=== PATIENT | male | born 1975 | race African-American/Black ===

== ENCOUNTER 2016-10-30 17:03 | Emergency (ER) | payer MEDICARE, MEDICAID ==
[~2016-10-30] VITALS: Ht 177.8 cm; Wt 60.0 kg
[~2016-10-30 17:03] MED LIST: ACET325 PO; BACI500T TOP; DOCU1CAP39 PO; MAGN30S PO; OXYC1SOL5 PO; PANT40P PO; POLY17S PO
[2016-10-30 17:06] VITALS: BP 96/53; PULSE 75; RESP 14; TEMP 98.3; O2SAT 97
--- NOTE | 2016-10-30 17:32 | PD ---
HPI Chief Complaint: OD/ Ingestion Time Seen by Provider: 17:10 Travel History International Travel<30 days: No Contact w/Intl Traveler<30days: No Traveled to known affect area: No History of Present Illness HPI The patient is a 41-year-old [place] male who presents emergency department via EMS after he was found lying on the road with altered mental status. According to EMS the patient was drinking alcohol earlier today and smoking K2. Upon arrival the patient was somewhat lethargic, was not answering questions appropriately, with subsequent brought to the emergency department for further evaluation. 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 The patient refuses to have any IV established and blood work performed. He is requesting something to drink. The patient denies any trauma to the head and denies any company chest pain, shortness breath, vomiting, or abdominal pain. He does complain of mild nausea, but refuses any antiemetics. PFSH Past Medical History Medical History: Denies Significant Hx Past Surgical History Surgical History: No Previous Surgery Other Surgery: Yes (RIGHT HAND SX) Social History Alcohol Use: Yes (patient admits to drinking alcohol earlier today) Tobacco Use: Yes (10 CIGARETTES ) Substance Use: Yes (HX FLAKKA, K2) Allergies-Medications (Allergen,Severity, Reaction): Coded Allergies: No Known Allergies (Unverified , 05/22/16) Reported Meds & Prescriptions Reported Meds & Active Scripts Active No Active Prescriptions or Reported Medications Review of Systems Except as stated in HPI: all other systems reviewed are Neg Gastrointestinal: Positive: Nausea Neurologic: Positive: Change in Mentation (according to EMS the patient was lethargic with an altered mental status) Psychiatric: Positive: Substance Abuse Physical Exam Narrative GENERAL: Awake, alert, pleasant 41-year-old male who appears his stated age and is in no acute respiratory distress. SKIN: Focused skin assessment warm/dry. HEAD: Atraumatic. Normocephalic. EYES: Pupils equal and round. Pupils are 4 mm bilateral and reactive. Mild injection. ENT: No nasal bleeding or discharge. Mucous membranes pink and moist. NECK: Trachea midline. No JVD. CARDIOVASCULAR: Regular rate and rhythm. No murmur appreciated. RESPIRATORY: No accessory muscle use. Clear to auscultation. Breath sounds equal bilaterally. GASTROINTESTINAL: Abdomen soft, non-tender, nondistended. No rebound tenderness. MUSCULOSKELETAL: No obvious deformities. No clubbing. No cyanosis. No edema. NEUROLOGICAL: Awake and alert. No obvious cranial nerve deficits. Motor grossly within normal limits. Normal speech. Nonfocal. Oriented 5. Follows commands without difficulty. PSYCHIATRIC: Appropriate mood and affect; insight and judgment normal. Data Data Last Documented VS Vital Signs Date Time Temp Pulse Resp B/P Pulse Ox O2 Delivery O2 Flow Rate FiO2 10/30/16 18:00 79 14 110/77 95 Room Air 10/30/16 17:06 98.3 [facility] Medical Decision Making Medical Screen Exam Complete: Yes Emergency Medical Condition: Yes Medical Record Reviewed: Yes Differential Diagnosis Differential diagnosis includes drug ingestion, alcohol intoxication, polysubstance abuse, mood disorder NOS. Narrative Course The patient is alert and oriented 5, nonfocal on exam, and refusing IV. Therefore, no IV or blood work was obtained. The patient was monitored in the emergency department for any change in mental status. The patient was given water to drink per his request. The patient was reevaluated at 6:40 PM, he still alert and oriented 5, is able follow commands without difficulty. The patient is stable for discharge. Diagnosis Primary Impression: Ingestion of substance Qualified Code: T65.91XA - Ingestion of substance, accidental or unintentional , initial encounter Patient Instructions: General Instructions Additional Instructions: Do not use drugs. Follow-up with your primary physician. Ride home. Return if symptoms worsen or progress. Med/Other Pt SpecificInfo: No Change to Meds Scripts No Active Prescriptions or Reported Meds Disposition: DISCHARGE HOME Condition: Stable Loyd Ulloa MD Oct 30, 2016 17:32
[2016-10-30 18:00] VITALS: BP 110/77; PULSE 79; RESP 14; O2SAT 95
== END 2016-10-30 19:06 | disposition home or self-care (01) ==
LOC: NEPE 17:03
DX: T65.91XA Toxic effect of unspecified substance, accidental (unintentional), initial encounter (principal)
CPT/HCPCS: 99284

== ENCOUNTER 2016-11-07 10:02 | Emergency (ER) | payer MEDICARE, MEDICAID ==
[~2016-11-07] VITALS: Ht 177.8 cm; Wt 59.0 kg
[2016-11-07 10:12] VITALS: BP 112/57; PULSE 89; RESP 18; TEMP 97.5; TEMP 98.1
--- NOTE | 2016-11-07 12:14 | PD ---
HPI Chief Complaint: Altered Mental Status Time Seen by Provider: 11:50 Travel History International Travel<30 days: No Contact w/Intl Traveler<30days: No Traveled to known affect area: No History of Present Illness HPI 41-year-old male was brought in by EMS after patient was found lying in the middle of the street. Patient ate that he was visiting his father nearby. Patient states that he saw ghost and the ghost inside him this morning. Patient denies any headache. Patient denies any chest pain or shortness of breath. Patient denies abdominal pain. Patient complained of heel pain. Patient states that he has history of heel fracture in the past. Patient stated he had persistent heel pain and has pain on the heels with walking. Patient denies any recent injury. Patient denies any drug, alcohol abuse. Patient denies any psychiatric history. In reviewing medical records, patient has history of substance abuse in the past including K2 and alcohol and tobacco. PFSH Past Surgical History Other Surgery: Yes (RIGHT HAND SX) Social History Alcohol Use: Yes (patient admits to drinking alcohol earlier today) Tobacco Use: Yes (10 CIGARETTES ) Substance Use: Yes (HX FLAKKA, K2) Allergies-Medications (Allergen,Severity, Reaction): Coded Allergies: No Known Allergies (Unverified , 05/22/16) Reported Meds & Prescriptions Reported Meds & Active Scripts Active No Active Prescriptions or Reported Medications Review of Systems General / Constitutional: No: Fever Eyes: No: Visual changes HENT: No: Headaches Cardiovascular: No: Chest Pain or Discomfort Respiratory: No: Shortness of Breath Gastrointestinal: No: Abdominal Pain Genitourinary: No: Dysuria Musculoskeletal: Positive: Pain Skin: No Rash Neurologic: No: Weakness Psychiatric: No: Depression Endocrine: No: Polydipsia Hematologic/Lymphatic: No: Easy Bruising Physical Exam Narrative GENERAL: Well-nourished, well-developed patient. SKIN: Focused skin assessment warm/dry. HEAD: Normocephalic. EYES: No scleral icterus. No injection or drainage. NECK: Supple, trachea midline. No JVD or lymphadenopathy. CARDIOVASCULAR: Regular rate and rhythm without murmurs, gallops, or rubs. RESPIRATORY: Breath sounds equal bilaterally. No accessory muscle use. GASTROINTESTINAL: Abdomen soft, non-tender, nondistended. MUSCULOSKELETAL: No cyanosis, or edema. Mild diffuse tenderness over bilateral heel area. No redness no swelling noted. Sensorimotor function distally intact. BACK: Nontender without obvious deformity. No CVA tenderness. Neurologic exam normal. Data Data Last Documented VS Vital Signs Date Time Temp Pulse Resp B/P Pulse Ox O2 Delivery O2 Flow Rate FiO2 11/07/16 10:16 95 Room Air 11/07/16 10:12 97.5 89 18 112/57 Orders Complete Blood Count With Diff (11/07/16 11:58) Comprehensive Metabolic Panel (11/07/16 11:58) Urinalysis - C+S If Indicated (11/07/16 11:58) Psych Screen (11/07/16 11:58) Drug Screen, Random Urine (11/07/16 11:58) Alcohol (Ethanol) (11/07/16 11:58) Foot, Complete ([id number]) (11/07/16 11:59) Foot, Complete ([id number]) (11/07/16 11:59) Electrocardiogram (11/07/16 10:23) Labs Laboratory Tests Test 11/07/16 11/07/16 11:00 14:10 White Blood Count 8.0 TH/MM3 Red Blood Count 4.39 MIL/MM3 Hemoglobin 12.4 GM/DL Hematocrit 36.2 % Mean Corpuscular Volume 82.3 FL Mean Corpuscular Hemoglobin 28.3 PG Mean Corpuscular Hemoglobin 34.4 % Concent Red Cell Distribution Width 13.4 % Platelet Count 272 TH/MM3 Mean Platelet Volume 8.7 FL Neutrophils (%) (Auto) 71.4 % Lymphocytes (%) (Auto) 17.5 % Monocytes (%) (Auto) 10.3 % Eosinophils (%) (Auto) 0.5 % Basophils (%) (Auto) 0.3 % Neutrophils # (Auto) 5.7 TH/MM3 Lymphocytes # (Auto) 1.4 TH/MM3 Monocytes # (Auto) 0.8 TH/MM3 Eosinophils # (Auto) 0.0 TH/MM3 Basophils # (Auto) 0.0 TH/MM3 CBC Comment DIFF FINAL Differential Comment Sodium Level 141 MEQ/L Potassium Level 3.4 MEQ/L Chloride Level 107 MEQ/L Carbon Dioxide Level 22.1 MEQ/L Anion Gap 12 MEQ/L Blood Urea Nitrogen 12 MG/DL Creatinine 1.22 MG/DL Estimat Glomerular Filtration 80 ML/MIN Rate Random Glucose 75 MG/DL Calcium Level 8.1 MG/DL Total Bilirubin 0.5 MG/DL Aspartate Amino Transf 92 U/L (AST/SGOT) Alanine Aminotransferase 150 U/L (ALT/SGPT) Alkaline Phosphatase 66 U/L Total Protein 6.8 GM/DL Albumin 3.3 GM/DL Ethyl Alcohol Level LESS THAN 3 MG/DL Urine Color YELLOW Urine Turbidity CLEAR Urine pH 6.5 Urine Specific [place] 1.013 Urine Protein 30 mg/dL Urine Glucose (UA) NEG mg/dL Urine Ketones 40 mg/dL Urine Occult Blood SMALL Urine Nitrite NEG Urine Bilirubin NEG Urine Urobilinogen LESS THAN 2.0 MG/DL Urine Leukocyte Esterase NEG Urine RBC 2 /hpf Urine WBC 1 /hpf Urine Bacteria RARE /hpf Urine Hyaline Casts 2 /lpf Urine Mucus FEW /lpf Microscopic Urinalysis Comment CULT NOT INDICATED Urine Opiates Screen NEG Urine Barbiturates Screen NEG Urine Amphetamines Screen NEG Urine Benzodiazepines Screen NEG Urine Cocaine Screen POS Urine Cannabinoids Screen POS MDM Medical Decision Making Medical Screen Exam Complete: Yes Emergency Medical Condition: Yes Interpretation(s) 1539 PM. Last Impressions Foot X-Ray 11/07/16 115 Signed Impressions: Service Date/Time: Monday, November 07, 2016 12:08 - CONCLUSION: Status post ORIF of a calcaneal fracture with apparent complete incorporation and healing. The remainder of the osseous structures demonstrate osteopenia likely secondary to disuse. Dana Maria MD Foot X-Ray 11/07/16 7705 Signed Impressions: Service Date/Time: Monday, November 07, 2016 12:12 - CONCLUSION: Mild osteopenia. No evidence of fracture. Dana Maria MD 1540 p.m. CBC within normal limit. CMP within normal limit. Potassium 3.4. AST 92. ALT 150. Alcohol negative. Urine drug screen positive for cocaine and cannabis. UA is negative. Differential Diagnosis Differential diagnosis including substance-induced mood disorder, dehydration, electrolyte imbalance, acute on chronic heel pain. Narrative Course 41-year-old male was brought in for evaluation after patient was found lying in the middle of the street. Patient has visual hallucination. Scripts No Active Prescriptions or Reported Meds Cristi Rosales MD Nov 07, 2016 12:14
[2016-11-07 12:39] LABS: AUTOMATED NEUTROPHIL # 5.7 TH/MM3 (1.8-7.7); BASOPHIL % 0.3 % (0.0-2.0); EOSINOPHIL % 0.5 % (0.0-4.0); HEMATOCRIT 36.2 % (39.0-51.0); HEMO FLAGS DIFF FINAL; LYMPH % 17.5 % (9.0-44.0); LYMPHOCYTE # 1.4 TH/MM3 (1.0-4.8); MEAN CELL VOLUME 82.3 FL (80.0-100.0); MEAN CORPUSCULAR HEMOGLOBIN 28.3 PG (27.0-34.0); MEAN CORPUSCULAR HGB CONC 34.4 % (32.0-36.0); MONO % 10.3 % (0.0-8.0); NEUT % 71.4 % (16.0-70.0); PLATELET COUNT 272 TH/MM3 (150-450); RED BLOOD COUNT 4.39 MIL/MM3 (4.50-5.90); RED CELL DISTRIBUTION WIDTH 13.4 % (11.6-17.2)
--- NOTE | 2016-11-07 12:40 | RADRPT ---
EXAM DATE/TIME: 11/07/2016 12:08 [facility] COMPARISON: FOOT RIGHT COMPLETE ([id number]), May 26, 2016, 14:00. INDICATIONS : Right foot pain MEDICAL HISTORY : None. SURGICAL HISTORY : Right Calcaneus Fracture repair ENCOUNTER: Initial ACUITY: 1 day PAIN SCORE: 10/10 LOCATION: Right Foot FINDINGS: 3 views of the right foot demonstrates extensive surgical hardware at the site of prior calcaneal fra cture. There appears to be complete osseous healing. No evidence of hardware complication. The osseou s structures demonstrate normal alignment and diffuse osteopenia, likely secondary to disuse. Soft ti ssues are grossly unremarkable. CONCLUSION: Status post ORIF of a calcaneal fracture with apparent complete incorporation and healing. The remain kaylah of the osseous structures demonstrate osteopenia likely secondary to disuse. Dana Maria MD on November 07, 2016 at 12:37 Board Certified Radiologist. This report was verified electronically.
--- NOTE | 2016-11-07 12:41 | RADRPT ---
EXAM DATE/TIME: 11/07/2016 12:12 [facility] COMPARISON: No previous studies available for comparison. INDICATIONS : Left foot pain MEDICAL HISTORY : None. SURGICAL HISTORY : Right Calcaneus Fracture repair ENCOUNTER: Initial ACUITY: 1 day PAIN SCORE: 7/10 LOCATION: Left Foot FINDINGS: Three view examination of the left foot demonstrates no soft tissue swelling, dislocation, or fractur e. The tarsal bones appear intact. The interphalangeal and metatarsophalangeal joints are intact. The calcaneus is intact. The bones appear mildly osteopenic. CONCLUSION: Mild osteopenia. No evidence of fracture. Dana Maria MD on November 07, 2016 at 12:39 Board Certified Radiologist. This report was verified electronically.
[2016-11-07 12:52] LABS: ALT (GPT) 150 U/L (12-78); ANION GAP 12 MEQ/L (5-15); AST (GOT) 92 U/L (15-37); BICARBONATE 22.1 MEQ/L (21.0-32.0); BLOOD UREA NITROGEN 12 MG/DL (7-18); CHLORIDE 107 MEQ/L (98-107); GLOMERULAR FILTRATION RATE 80 ML/MIN (>89); POTASSIUM 3.4 MEQ/L (3.5-5.1); SODIUM (NA) 141 MEQ/L (136-145)
[2016-11-07 12:54] LABS: ALKALINE PHOSPHATASE 66 U/L (45-117); TOTAL BILIRUBIN ADULT 0.5 MG/DL (0.2-1.0)
[2016-11-07 14:36] LABS: BACTERIA, URINE RARE /hpf; BLOOD, URINE SMALL (NEG); COMMENT (UR) CULT NOT INDICATED; CULTURE IF INDICATED CULT NOT INDICATED; GLUCOSE,URINE NEG (NEG); HYALINE CAST, URINE 2 /lpf (RARE); KETONE, URINE 40 mg/dL (NEG); MUCUS URINE FEW /lpf (OCC); NITRITE,URINE NEG (NEG); PH, URINE 6.5 (5.0-8.5); URINE COLOR YELLOW (YELLW/STRAW)
[2016-11-07 14:44] LABS: AMPHETAMINE, URINE NEG (NEG); BARBITURATES, URINE NEG (NEG); COCAINE, URINE POS (NEG)
[2016-11-07 17:02] VITALS: BP 116/60; PULSE 66; RESP 18; TEMP 98.6; O2SAT 97
[2016-11-07 22:00] VITALS: BP 127/57; PULSE 59; RESP 18; O2SAT 99
[2016-11-08 02:37] VITALS: BP 119/57; PULSE 68; RESP 18; O2SAT 100
[2016-11-08 06:20] VITALS: BP 116/65; PULSE 67; RESP 18
--- NOTE | 2016-11-08 10:30 | EKG ---
Date Performed: 11/07/2016 Time Performed: 10:23:30 PTAGE: 41 years EKG: Sinus rhythm WITH SHORT AK INTERVAL WITH OCCASIONAL ECTOPIC PREMATURE COMPLEXES MINIMAL VOLTAGE CRITERIA FOR LVH, CONSIDER NORMAL VARIANT BORDERLINE ECG INTERPRETATION BASED ON A DEFAULT AGE OF 42 YEARS NO PREVIOUS TRACING DOCTOR: Laura Lang Interpretating Date/Time 11/08/2016 10:26:09
== END 2016-11-08 10:39 | disposition home or self-care (01) ==
LOC: NEPC 10:02 → NEPJ 11-08 10:39
DX: R44.1 Visual hallucinations (principal); F17.210 Nicotine dependence, cigarettes, uncomplicated; F19.10 Other psychoactive substance abuse, uncomplicated; R46.89 Other symptoms and signs involving appearance and behavior; Y92.410 Unspecified street and highway as the place of occurrence of the external cause
CPT/HCPCS: 73630; 80053; 80307; 81001; 85025; 93005

== ENCOUNTER 2016-11-17 13:07 | Inpatient (IN) | payer MEDICARE, MEDICAID ==
[2016-11-17] VITALS (10 sets, daily range): BP systolic 99–139; BP diastolic 59–78; PULSE 60–146; RESP 16–20; TEMP 97–98.7; O2SAT 95–98
[~2016-11-17] VITALS: Ht 175.3 cm; Wt 67.3 kg
[2016-11-17] MEDS ORDERED: LORazepam 2 MG/ML VIAL ONE (13:14)
[2016-11-17] MEDS ORDERED: LORazepam 2 MG/ML VIAL IV PUSH ONE ×4 (13:45→17:00)
[2016-11-17] MEDS ORDERED: SODIUM CHLOR 0.9% 1000 ML INJ 1,000 ML IV ONE ×4 (13:45→15:00)
[2016-11-17 13:51] LABS: AUTOMATED NEUTROPHIL # 7.7 TH/MM3 (1.8-7.7); BASOPHIL # 0.1 TH/MM3 (0-0.2); BASOPHIL % 0.6 % (0.0-2.0); EOSINOPHIL % 0.3 % (0.0-4.0); HEMATOCRIT 36.2 % (39.0-51.0); HEMO FLAGS DIFF FINAL; LYMPH % 19.5 % (9.0-44.0); LYMPHOCYTE # 2.1 TH/MM3 (1.0-4.8); MEAN CELL VOLUME 84.5 FL (80.0-100.0); MEAN CORPUSCULAR HEMOGLOBIN 28.7 PG (27.0-34.0); MONO % 8.8 % (0.0-8.0); NEUT % 70.8 % (16.0-70.0); PLATELET COUNT 400 TH/MM3 (150-450); RED BLOOD COUNT 4.28 MIL/MM3 (4.50-5.90); RED CELL DISTRIBUTION WIDTH 13.6 % (11.6-17.2); WHITE BLOOD COUNT 10.8 TH/MM3 (4.0-11.0)
--- NOTE | 2016-11-17 14:14 | PD ---
HPI Chief Complaint: Alcohol/Drug Intoxication Time Seen by Provider: 13:41 Travel History International Travel<30 days: No Contact w/Intl Traveler<30days: No Traveled to known affect area: No History of Present Illness HPI 41 year-old man presents emergency department after being found supine on the ground unresponsive. He quickly regained consciousness and became aggressive and combative. Bystanders on scene state that he was smoking K2 and something else earlier today. His a history of polysubstance abuse and K2 use. He is unable to give any meaningful history. Denies any illicit drug use. Denies any trauma. History Past Medical History Narrative Medical Polysubstance abuse Social History Alcohol Use: Yes (patient admits to drinking alcohol earlier today) Tobacco Use: Yes (10 CIGARETTES ) Allergies-Medications (Allergen,Severity, Reaction): Coded Allergies: No Known Allergies (Unverified , 05/22/16) Reported Meds & Prescriptions Reported Meds & Active Scripts Active No Active Prescriptions or Reported Medications Review of Systems Except as stated in HPI: all other systems reviewed are Neg Physical Exam Narrative GENERAL: 41 year-old man, in 4pt restraints with EMS on backboard, screaming incoherently. SKIN: Focused skin assessment warm/dry. HEAD: Normocephalic. No evidence of trauma. EYES: Pupils a little bit large, reactive. ENT: No nasal bleeding or discharge. Mucous membranes pink and moist. NECK: Trachea midline. No JVD. CARDIOVASCULAR: Regular rate and rhythm. No murmur appreciated. RESPIRATORY: No accessory muscle use. Clear to auscultation. Breath sounds equal bilaterally. GASTROINTESTINAL: Abdomen soft, non-tender, nondistended. Hepatic and splenic margins not palpable. MUSCULOSKELETAL: No obvious deformities. No edema. No obvious evidence of injury. NEUROLOGICAL: Awake and alert, hypervigilant. Mostly screaming incoherently but we'll focus at times on questions. He also demands to be released states to be released and that he is fine. Data Data Last Documented VS Vital Signs Date Time Temp Pulse Resp B/P Pulse Ox O2 Delivery O2 Flow Rate FiO2 11/17/16 16:13 88 18 116/59 98 Room Air 11/17/16 13:26 98.1 Orders Lorazepam Inj (Ativan Inj) (11/17/16 13:14) Lorazepam Inj (Ativan Inj) (11/17/16 13:45) Lorazepam Inj (Ativan Inj) (11/17/16 13:45) Sodium Chlor 0.9% 1000 Ml Inj (Ns 1000 M (11/17/16 13:45) Iv Access Insert/Monitor (11/17/16 13:41) Complete Blood Count With Diff (11/17/16 13:41) Comprehensive Metabolic Panel (11/17/16 13:41) Alcohol (Ethanol) (11/17/16 13:41) Creatine Kinase (Cpk) (11/17/16 13:41) CKMB (11/17/16 13:35) CKMB% (11/17/16 13:35) Sodium Chlor 0.9% 1000 Ml Inj (Ns 1000 M (11/17/16 15:00) Sodium Chlor 0.9% 1000 Ml Inj (Ns 1000 M (11/17/16 15:00) Sodium Chlor 0.9% 1000 Ml Inj (Ns 1000 M (11/17/16 15:00) Basic Metabolic Panel (Bmp) (11/17/16 17:00) Lorazepam Inj (Ativan Inj) (11/17/16 15:00) Lactic Acid (11/17/16 14:51) Lactic Acid (11/17/16 17:00) Lorazepam Inj (Ativan Inj) (11/17/16 17:00) Admit Order (Ed Use Only) (11/17/16 ) Labs Laboratory Tests Test 11/17/16 11/17/16 13:35 15:00 White Blood Count 10.8 TH/MM3 Red Blood Count 4.28 MIL/MM3 Hemoglobin 12.3 GM/DL Hematocrit 36.2 % Mean Corpuscular Volume 84.5 FL Mean Corpuscular Hemoglobin 28.7 PG Mean Corpuscular Hemoglobin 34.0 % Concent Red Cell Distribution Width 13.6 % Platelet Count 400 TH/MM3 Mean Platelet Volume 7.9 FL Neutrophils (%) (Auto) 70.8 % Lymphocytes (%) (Auto) 19.5 % Monocytes (%) (Auto) 8.8 % Eosinophils (%) (Auto) 0.3 % Basophils (%) (Auto) 0.6 % Neutrophils # (Auto) 7.7 TH/MM3 Lymphocytes # (Auto) 2.1 TH/MM3 Monocytes # (Auto) 0.9 TH/MM3 Eosinophils # (Auto) 0.0 TH/MM3 Basophils # (Auto) 0.1 TH/MM3 CBC Comment DIFF FINAL Differential Comment Sodium Level 138 MEQ/L Potassium Level 3.9 MEQ/L Chloride Level 100 MEQ/L Carbon Dioxide Level 13.4 MEQ/L Anion Gap 25 MEQ/L Blood Urea Nitrogen 9 MG/DL Creatinine 1.90 MG/DL Estimat Glomerular Filtration 48 ML/MIN Rate Random Glucose 79 MG/DL Calcium Level 8.9 MG/DL Total Bilirubin 0.6 MG/DL Aspartate Amino Transf 105 U/L (AST/SGOT) Alanine Aminotransferase 187 U/L (ALT/SGPT) Alkaline Phosphatase 108 U/L Total Creatine Kinase 1045 U/L Creatine Kinase MB 5.1 NG/ML Creatine Kinase MB % 0.5 % Total Protein 7.6 GM/DL Albumin 3.6 GM/DL Ethyl Alcohol Level LESS THAN 3 MG/DL Lactic Acid Level 2.3 mmol/L MDM Medical Decision Making Medical Screen Exam Complete: Yes Emergency Medical Condition: Yes Interpretation(s) LABS: CBC unremarkable CMP remarkable for elevated anion gap, creatinine 1.9, elevated AST and ALT Total CK 045 Alcohol negative Differential Diagnosis Sympathic mimetic intoxication, alcohol intoxication, illicit drug use, occult trauma, psychiatric disease, other Narrative Course Medical decision making INITIAL: 41-year-old male known history of K2 use presents emergency department apparently intoxicated K2 or flakka. I don't see any evidence of injury. He required restraint and sedation. If he recovers, Dilaudid be released. Remaining monitoring. We'll screen for any evidence of electrolyte abnormality , rhabdomyolysis. He'll be monitored in the emergency department. FINAL: Patient requiring continued IV sedation. Will admit patient to the ICU for agitated delirium for close monitoring. Critical Care Narrative Aggregate critical care time was 35 minutes. Time to perform other separately billable procedures was not included in the critical care time. My time did not include minutes spent treating any other patients simultaneously or on activities that did not directly contribute to the patient's treatment. The services I provided to this patient were to treat and/or prevent clinically significant deterioration that could result in: , disability, renal failure , respiratory compromise, rhabdomyolysis. I provided critical care services requiring my management, as noted below: Chart data review, documentation time, medication orders and management, vital sign assessments/reviewing monitor data, ordering and reviewing lab tests, ordering and interpreting/reviewing x-rays and diagnostic studies, care of the patient and discussion of the patient with the admitting physicians. Diagnosis Primary Impression: Altered mental status Scripts No Active Prescriptions or Reported Meds Trae Kirkland MD Nov 17, 2016 14:14
[2016-11-17 14:27] LABS: ALKALINE PHOSPHATASE 108 U/L (45-117); ALT (GPT) 187 U/L (12-78); ANION GAP 25 MEQ/L (5-15); AST (GOT) 105 U/L (15-37); BICARBONATE 13.4 MEQ/L (21.0-32.0); BLOOD UREA NITROGEN 9 MG/DL (7-18); CHLORIDE 100 MEQ/L (98-107); CREATINE KINASE 1045 U/L (39-308); GLOMERULAR FILTRATION RATE 48 ML/MIN (>89); POTASSIUM 3.9 MEQ/L (3.5-5.1); SODIUM (NA) 138 MEQ/L (136-145); TOTAL BILIRUBIN ADULT 0.6 MG/DL (0.2-1.0)
[2016-11-17 14:44] LABS: CKMB 5.1 NG/ML (0.5-3.6)
[2016-11-17] MEDS ORDERED: LORazepam 2 MG/ML VIAL IV PUSH PRN ×3 (17:15)
[2016-11-17] MEDS ORDERED: FLUMAZENIL 0.5 MG/5 ML VIAL IV PUSH PRN (17:15)
[2016-11-17] MEDS ORDERED: cloNIDine HCL 0.1 MG TAB PO PRN (17:15)
[2016-11-17] MEDS ORDERED: MAGNESIUM HYDROXIDE SUSP 30 ML CUP PO PRN (17:15)
[2016-11-17] MEDS ORDERED: ACETAMINOPHEN 325 MG TAB PO PRN (17:15)
[2016-11-17] MEDS ORDERED: HALOPERIDOL LACTATE 5 MG/ML AMP IM PRN (17:15)
[2016-11-17] MEDS ORDERED: LORazepam 2 MG TAB PO PRN (17:15)
[2016-11-17] MEDS ORDERED: ONDANSETRON HCL 4 MG/2 ML VIAL IVP PRN (17:15)
[2016-11-17] MEDS ORDERED: SODIUM CHLORIDE 0.9% FLUSH 10 ML FLUSH IV FLUSH PRN ×2 (17:15)
[2016-11-17] MEDS ORDERED: LORazepam 1 MG TAB PO PRN (17:15)
[2016-11-17 17:33] LABS: BICARBONATE 21.6 MEQ/L (21.0-32.0); POTASSIUM 3.8 MEQ/L (3.5-5.1)
[2016-11-17 17:35] LABS: MAGNESIUM 2.6 MG/DL (1.5-2.5)
[2016-11-17] MEDS: MULTIVITAMIN INJ 10 ML, FOLIC ACID INJ 1 MG in SODIUM CHLORID 0.9% 500 ML INJ 500 ML IV SCH (18:00)
[2016-11-17] MEDS: DOCUSATE SODIUM 100 MG CAP PO SCH (18:00)
[2016-11-17] MEDS ORDERED: THIAMINE INJ 100 MG in SODIUM CHLORIDE 0.9% INJ 100 ML IV SCH (18:00)
[2016-11-17 18:08] LABS: CKMB 5.8 NG/ML (0.5-3.6)
[2016-11-17] MEDS: SODIUM CHLOR 0.9% 1000 ML INJ 1,000 ML IV SCH ×2 (18:30→22:22)
[2016-11-17] MEDS: SODIUM CHLORIDE 0.9% FLUSH 10 ML FLUSH IV FLUSH SCH (19:35)
[2016-11-17] MEDS: LORazepam 2 MG/ML VIAL IV PUSH PRN ×2 (19:36→22:22)
--- NOTE | 2016-11-17 19:56 | HHI.HP ---
[facility] Service [facility] Primary Care Physician Unknown Admission Diagnosis agitated delirium, illicit drug use Diagnoses: Chief Complaint: agitated, substance use, altered mental status Travel History International Travel<30 Days: No Contact w/Intl Traveler <30 Da: No Traveled to Known Affected Are: No History of Present Illness 41 year-old man with h/o of substance use, presents emergency department after being found supine on the ground unresponsive. He quickly regained consciousness and became aggressive and combative. Bystanders on scene state that he was smoking K2 and something else earlier today. He has a history of polysubstance abuse and K2 use. He is unable to give any meaningful history. Most of history is taken from records. Denies any illicit drug use. Denies any trauma. Review of Systems ROS Limitations: Intoxication, Altered Mental Status, Uncooperative, Refused, Combative, Psychotic, Poor Historian Except as stated in HPI: all other systems reviewed are Neg Past Family Social History Past Medical History H/o polysubstance use Past Surgical History unobtainable Allergies: Coded Allergies: No Known Allergies (Unverified , 05/22/16) Family History Unobtainable Social History Patient admitted in the ED to drinking alcohol earlier today, unspecified amount Tobacco use 10 cig daily Polysubstance use , K2 use Physical Exam Vital Signs Vital Signs Date Time Temp Pulse Resp B/P Pulse Ox O2 Delivery O2 Flow Rate FiO2 11/17/16 19:42 65 117/65 11/17/16 19:30 98.7 84 20 99/78 98 Room Air 11/17/16 19:16 77 16 114/64 97 Nasal Cannula 2 11/17/16 17:31 92 20 120/60 Room Air 11/17/16 17:16 97 21 11/17/16 16:13 88 18 116/59 98 Room Air 11/17/16 13:33 146 20 97 Room Air 11/17/16 13:32 146 18 139/65 97 Room Air 11/17/16 13:26 98.1 139 20 139/65 95 Physical Exam GENERAL: 41 year-old man, in 4 point restraints agitated earlier, now lethargic. SKIN: Warm and dry. HEAD: Normocephalic. No evidence of trauma. EYES: Pupils a little bit large, reactive. ENT: No nasal bleeding or discharge. Mucous membranes pink and moist. NECK: Trachea midline. No JVD. CARDIOVASCULAR: Regular rate and rhythm. No murmur appreciated. RESPIRATORY: No accessory muscle use. Clear to auscultation. Breath sounds equal bilaterally. GASTROINTESTINAL: Abdomen soft, non-tender, nondistended. Hepatic and splenic margins not palpable. MUSCULOSKELETAL: No obvious deformities. No edema. No obvious evidence of injury. NEUROLOGICAL: Awake and alert, hypervigilant and alternating with being lethargic. Laboratory Laboratory Tests Test 11/17/16 11/17/16 11/17/16 13:35 15:00 16:55 White Blood Count 10.8 Red Blood Count 4.28 Hemoglobin 12.3 Hematocrit 36.2 Mean Corpuscular Volume 84.5 Mean Corpuscular Hemoglobin 28.7 Mean Corpuscular Hemoglobin 34.0 Concent Red Cell Distribution Width 13.6 Platelet Count 400 Mean Platelet Volume 7.9 Neutrophils (%) (Auto) 70.8 Lymphocytes (%) (Auto) 19.5 Monocytes (%) (Auto) 8.8 Eosinophils (%) (Auto) 0.3 Basophils (%) (Auto) 0.6 Neutrophils # (Auto) 7.7 Lymphocytes # (Auto) 2.1 Monocytes # (Auto) 0.9 Eosinophils # (Auto) 0.0 Basophils # (Auto) 0.1 CBC Comment DIFF FINAL Differential Comment Sodium Level 138 143 Potassium Level 3.9 3.8 Chloride Level 100 112 Carbon Dioxide Level 13.4 21.6 Anion Gap 25 9 Blood Urea Nitrogen 9 9 Creatinine 1.90 1.22 Estimat Glomerular Filtration 48 80 Rate Random Glucose 79 77 Calcium Level 8.9 7.8 Total Bilirubin 0.6 Aspartate Amino Transf 105 (AST/SGOT) Alanine Aminotransferase 187 (ALT/SGPT) Alkaline Phosphatase 108 Total Creatine Kinase 1045 1315 Creatine Kinase MB 5.1 5.8 Creatine Kinase MB % 0.5 0.4 Total Protein 7.6 Albumin 3.6 Ethyl Alcohol Level LESS THAN 3 Lactic Acid Level 2.3 1.0 Phosphorus Level 3.1 Magnesium Level 2.6 Result Diagram: 11/17/16 1335 11/17/16 9299 Assessment and Plan Assessment and Plan 41-year-old male known history of K2 use presents emergency department apparently intoxicated K2 or flakka. No signs of trauma. He required restraint and sedation. Polysubstance use Rhabdomyolysis Acute encephalopathy 2/2 substance use EtOH Withdrawal. On CIWA protocol Patient requiring continued IV sedation. Will admit patient to the ICU for agitated delirium for close monitoring. CBC unremarkable CMP remarkable for elevated anion gap, creatinine 1.9, elevated AST and ALT. Will monitor CMP closely. Monitor mag and phos. Total CK 1045, Monitor trend. Monitor closely kidney function Alcohol negative DVT ppx SCD/TEDs Discussed Condition With Patient, nurse, ED physician Physician Certification 2 Midnight Certification Type: Admission for Inpatient Services Order for Inpatient Services The services are ordered in accordance with Medicare regulations or non- Medicare payer requirements, as applicable. In the case of services not specified as inpatient-only, they are appropriately provided as inpatient services in accordance with the 2-midnight benchmark. Estimated LOS (days): 3 days is the estimated time the patient will need to remain in the hospital, assuming treatment plan goals are met and no additional complications. Post-Hospital Plan: Home Shruthi Garcia MD Nov 17, 2016 19:56
[2016-11-17] MEDS ORDERED: SODIUM CHLORIDE 0.9% FLUSH 10 ML FLUSH IV FLUSH SCH (21:00)
[2016-11-18] VITALS (12 sets, daily range): BP systolic 103–131; BP diastolic 55–73; PULSE 53–77; RESP 13–28; TEMP 96.8–99.6; O2SAT 93–99
[2016-11-18] MEDS ORDERED: DEXTROSE 50% IN WATER 50 ML SYRINGE ONE ×2 (00:14→02:46)
[2016-11-18 01:25] LABS: ALT (GPT) 185 U/L (12-78); ANION GAP 9 MEQ/L (5-15); AST (GOT) 146 U/L (15-37); BICARBONATE 22.3 MEQ/L (21.0-32.0); BLOOD UREA NITROGEN 8 MG/DL (7-18); CHLORIDE 112 MEQ/L (98-107); GLOMERULAR FILTRATION RATE 90 ML/MIN (>89); MAGNESIUM 2.3 MG/DL (1.5-2.5); POTASSIUM 4.2 MEQ/L (3.5-5.1); SODIUM (NA) 143 MEQ/L (136-145)
[2016-11-18 01:27] LABS: ALKALINE PHOSPHATASE 86 U/L (45-117)
[2016-11-18] MEDS ORDERED: DEXTROSE 50% IN WATER 50 ML VIAL(D50) IV PUSH PRN (03:00)
[2016-11-18] MEDS: DEXT 5%-NACL 0.9% 1000 ML INJ 1,000 ML IV SCH ×3 (03:22→16:13)
[2016-11-18 05:36] LABS: ALKALINE PHOSPHATASE 82 U/L (45-117); ALT (GPT) 191 U/L (12-78); ANION GAP 9 MEQ/L (5-15); AST (GOT) 163 U/L (15-37); BICARBONATE 22.4 MEQ/L (21.0-32.0); BLOOD UREA NITROGEN 7 MG/DL (7-18); CHLORIDE 112 MEQ/L (98-107); GLOMERULAR FILTRATION RATE 96 ML/MIN (>89); POTASSIUM 3.6 MEQ/L (3.5-5.1); SODIUM (NA) 143 MEQ/L (136-145)
[2016-11-18 05:40] LABS: ALKALINE PHOSPHATASE 83 U/L (45-117); ALT (GPT) 196 U/L (12-78); ANION GAP 9 MEQ/L (5-15); AST (GOT) 165 U/L (15-37); BICARBONATE 22.6 MEQ/L (21.0-32.0); BLOOD UREA NITROGEN 8 MG/DL (7-18); CHLORIDE 111 MEQ/L (98-107); GLOMERULAR FILTRATION RATE 93 ML/MIN (>89); MAGNESIUM 2.2 MG/DL (1.5-2.5); POTASSIUM 3.6 MEQ/L (3.5-5.1); SODIUM (NA) 143 MEQ/L (136-145)
[2016-11-18] MEDS: DOCUSATE SODIUM 100 MG CAP PO SCH ×2 (06:00→17:54)
[2016-11-18] MEDS ORDERED: POTASSIUM PHOSPHATE MONOBASIC 500 MG TAB PO ONE (08:45)
--- NOTE | 2016-11-18 08:46 | HHI.PR ---
Subjective Remarks More alert and awake. Poor historian , Alert and oriented by name and . Says he doesn't remember what happened. Can not tell me what is the last thing he remembers. No fevers or chills. Has no pain. Objective Vitals Vital Signs Date Time Temp Pulse Resp B/P Pulse Ox O2 Delivery O2 Flow Rate FiO2 11/18/16 06:00 74 11/18/16 04:00 98.2 75 28 115/62 93 11/18/16 04:00 75 11/18/16 02:00 61 11/18/16 00:00 53 11/18/16 00:00 99.6 53 13 131/69 98 11/17/16 22:00 72 11/17/16 20:00 97.0 65 18 124/64 98 11/17/16 20:00 60 11/17/16 19:42 65 117/65 11/17/16 19:30 98.7 84 20 99/78 98 Room Air 11/17/16 19:16 77 16 114/64 97 Nasal Cannula 2 11/17/16 17:31 92 20 120/60 Room Air 11/17/16 17:16 97 21 11/17/16 16:13 88 18 116/59 98 Room Air 11/17/16 13:33 146 20 97 Room Air 11/17/16 13:32 146 18 139/65 97 Room Air 11/17/16 13:26 98.1 139 20 139/65 95 I/O 11/17/16 11/17/16 11/17/16 11/18/16 11/18/16 11/18/16 07:00 15:00 23:00 07:00 15:00 23:00 Intake Total 4330 ml 1019 ml Output Total 3100 ml 1200 ml Balance 1230 ml -181 ml Intake IV Total 4330 ml 1019 ml Output Urine Total 3100 ml 1200 ml # Voids 0 # Bowel Movements 0 0 Result Diagram: 11/17/16 0245 11/18/16 3940 Objective Remarks GENERAL: 41 year-old man, in 4 point restraints agitated earlier, less agitated SKIN: Warm and dry. HEAD: Normocephalic. No evidence of trauma. EYES: Pupils a little bit large, reactive. ENT: No nasal bleeding or discharge. Mucous membranes pink and moist. NECK: Trachea midline. No JVD. CARDIOVASCULAR: Regular rate and rhythm. No murmur appreciated. RESPIRATORY: No accessory muscle use. Clear to auscultation. Breath sounds equal bilaterally. GASTROINTESTINAL: Abdomen soft, non-tender, nondistended. Hepatic and splenic margins not palpable. MUSCULOSKELETAL: No obvious deformities. No edema. No obvious evidence of injury. NEUROLOGICAL: Awake and alert, less agitated. PSYCH: Patient doesn't want to talk much. Keeps his eyes closed most of the time , doesn't have eye contact. A/P Assessment and Plan 41-year-old male known history of K2 use presents emergency department apparently intoxicated K2 or flakka. No signs of trauma. He required restraint and sedation. Polysubstance use Rhabdomyolysis Acute encephalopathy 2/2 substance use EtOH Withdrawal. On CIWA protocol CPK was noted trending up. Low phos replaced. Monitor Mag and phos and replace as need. Noted hypoglycemic, fluids changed to D5 IVF NS at 150 cc /hrs Monitor closely kidney function and trend CPK CBC unremarkable CMP remarkable for elevated anion gap, creatinine 1.9, elevated AST and ALT. Will monitor CMP closely. Monitor mag and phos. Total CK 1045, Monitor trend. Monitor closely kidney function Alcohol negative Will consult psychiatry DVT ppx SCD/TEDs Discussed Condition With Patient, ICU nurse Transfer to med surg floor. Shruthi Garcia MD Nov 18, 2016 08:45
[2016-11-18] MEDS: SODIUM CHLORIDE 0.9% FLUSH 10 ML FLUSH IV FLUSH SCH ×2 (09:00→21:00)
[2016-11-18 09:52] LABS: CREATINE KINASE 1944 U/L (39-308)
[2016-11-18 10:07] LABS: CKMB 9.7 NG/ML (0.5-3.6)
--- NOTE | 2016-11-18 15:57 | PD.CONS ---
Provisional Diagnosis Admission Date Nov 17, 2016 at 17:00 Ortley I. History of syntectic cannabis use disorder Ortley II. Deferred History of Present Illness Service Psychiatry Consult Requested By Primary Care Physician Unknown HPI The patient is a 41-year-old man, unknown social circumstances , documented history of substance use, he has been sitting in the past by psychiatry, I have read Dr. Montalvo documentation in the past, he has been Hernandez acted due to aggressive behavior in the context of K2 induced psychosis, who Presents emergency department after being found supine on the ground unresponsive. He quickly regained consciousness and became aggressive and combative. Bystanders on scene state that he was smoking K2 and something else earlier today. I tried to evaluate the patient today in order to determine if the patient meet criteria for psychiatric hospitalization under Hernandez act, but patient was not cooperative, he seems to be very sedated and sleepy not able to cooperate with the evaluation of this moment. He was sedated with Ativan and Haldol hours ago. Review of Systems ROS Limitations: Unresponsive, Uncooperative Past Family Social History Coded Allergies: No Known Allergies (Unverified , 05/22/16) No Active Prescriptions or Reported Meds Current Medications Medications (Trade) Dose Ordered Sig/Donato Route Start Time Stop Time Status Last Admin (Tylenol) 650 mg Q4H PRN PO 11/17/16 17:15 11/18/16 10:24 (Zofran Inj) 4 mg Q6H PRN IVP 11/17/16 17:15 (Colace) 100 mg Q12H PO 11/17/16 18:00 (Milk Of Magnesia Liq) 30 ml Q12H PRN PO 11/17/16 17:15 (NS Flush) 2 ml UNSCH PRN IV FLUSH 11/17/16 17:15 Sodium Chloride 2 ml 2 ml BID IV FLUSH 11/17/16 21:00 11/18/16 09:00 Multivitamins 10 ml/Folic Acid 1 mg/Sodium Chloride 510.2 ml @ 125 mls/hr Q24H IV 11/17/16 17:15 11/22/16 17:14 11/17/16 18:00 (Thiamine Inj/NS Inj) 101 ml @ 100 mls/hr Q24H IV 11/17/16 18:00 11/20/16 17:59 11/17/16 18:00 (Vitamin B1) 100 mg DAILY PO 11/20/16 09:00 (Catapres) 0.1 mg Q6H PRN PO 11/17/16 17:15 (Romazicon Inj) 0.2 mg Q1M PRN IV PUSH 11/17/16 17:15 (Ativan) 1 mg Q4H PRN PO 11/17/16 17:15 (Ativan Inj) 1 mg Q4H PRN IV PUSH 11/17/16 17:15 (Ativan) 2 mg Q2H PRN PO 11/17/16 17:15 (Ativan Inj) 2 mg Q2H PRN IV PUSH 11/17/16 17:15 11/17/16 22:22 (Ativan Inj) 2 mg Q1H PRN IV PUSH 11/17/16 17:15 (Ativan Inj) 2 mg Q15M PRN IV PUSH 11/17/16 17:15 (Haldol Inj) 2 mg Q15M PRN IM 11/17/16 17:15 11/17/16 20:28 Dextrose 50 ml 50 ml Q1HR PRN IV PUSH 11/18/16 03:00 (D5W-NS 1000 ml Inj) 1,000 ml @ 150 mls/hr Q6H40M IV 11/18/16 03:15 11/18/16 09:55 Physical Exam Vital Signs Vital Signs Date Time Temp Pulse Resp B/P Pulse Ox O2 Delivery O2 Flow Rate FiO2 11/18/16 13:30 96.8 68 16 114/59 99 11/18/16 08:13 21 11/18/16 07:00 Room Air 11/17/16 19:16 2 I/O 11/17/16 11/17/16 11/18/16 08:00 16:00 00:00 Intake Total 4330 ml Output Total 3100 ml Balance 1230 ml Mental Status Examination Mental status is limited due to level of sedation Appearance man, with long hair, for hygiene, malodorous, uncooperative, sedated Assessment & Plan Problem List: (1) Polysubstance dependence Assessment & Plan: The patient is a 41-year-old man, with psychiatric history of K2 use disorder, K2 psychosis, aggressive behavior, Hernandez acted previously, but not admitted. At this moment patient is non- cooperative due to level of sedation. Will see him tomorrow for follow-up and to determine if patient meets criteria for psychiatric admission. I will order Haldol 5 mg IM every 8 hours for aggressive behavior and agitation, Ativan 2 mg IM every 8 hours for the same reason. ICD Code: F19.20 Assessment & Plan Estimated LOS: Jason Romero MD Nov 18, 2016 15:56
[2016-11-18] MEDS: MULTIVITAMIN INJ 10 ML, FOLIC ACID INJ 1 MG in SODIUM CHLORID 0.9% 500 ML INJ 500 ML IV SCH (16:50)
[2016-11-18 19:08] LABS: CKMB 3.6 NG/ML (0.5-3.6)
[2016-11-19] VITALS: BP 107/71; PULSE 88; RESP 20; TEMP 98.6; O2SAT 97
[2016-11-19] MEDS: DEXT 5%-NACL 0.9% 1000 ML INJ 1,000 ML IV SCH ×4 (00:25→19:15)
[2016-11-19 04:00] VITALS: BP 101/58; PULSE 65; RESP 20; TEMP 98.7; O2SAT 96
[2016-11-19] MEDS: DOCUSATE SODIUM 100 MG CAP PO SCH ×2 (05:55→17:08)
[2016-11-19 08:00] VITALS: BP 123/74; PULSE 69; RESP 16; TEMP 96.2; O2SAT 98
[2016-11-19] MEDS: SODIUM CHLORIDE 0.9% FLUSH 10 ML FLUSH IV FLUSH SCH (08:14)
[2016-11-19 10:52] LABS: CKMB 1.9 NG/ML (0.5-3.6)
[2016-11-19 12:00] VITALS: BP 124/76; PULSE 76; RESP 16; TEMP 97.2; O2SAT 98
--- NOTE | 2016-11-19 14:40 | HHI.DS ---
Discharge Summary Admission Date Nov 17, 2016 at 17:00 Discharge Date: Nov 19, 2016 Admitting Diagnosis agitated delirium, illicit drug use (1) Polysubstance dependence ICD Code: F19.20 Diagnosis: Principal (2) Altered mental status ICD Code: R41.82 Diagnosis: Principal (3) Ingestion of substance ICD Code: T65.91XA Diagnosis: Principal (4) Rhabdomyolysis ICD Code: M62.82 Diagnosis: Principal Procedures none Brief History - From Admission 41 year-old man with h/o of substance use, presents emergency department after being found supine on the ground unresponsive. He quickly regained consciousness and became aggressive and combative. Bystanders on scene state that he was smoking K2 and something else earlier today. He has a history of polysubstance abuse and K2 use. He is unable to give any meaningful history. Most of history is taken from records. Denies any illicit drug use. Denies any trauma. CBC/BMP: 11/17/16 1335 11/18/16 0407 Significant Findings Laboratory Tests Test 11/17/16 11/17/16 11/17/16 11/18/16 13:35 15:00 16:55 00:26 Red Blood Count 4.28 MIL/MM3 (4.50-5.90) Hemoglobin 12.3 GM/DL (13.0-17.0) Hematocrit 36.2 % (39.0-51.0) Neutrophils (%) (Auto) 70.8 % (16.0-70.0) Monocytes (%) (Auto) 8.8 % (0.0-8.0) Carbon Dioxide Level 13.4 MEQ/L (21.0-32.0) Anion Gap 25 MEQ/L (5-15) Creatinine 1.90 MG/DL (0.60-1.30) Estimat Glomerular Filtration 48 ML/MIN (>89) 80 ML/MIN (>89) Rate Aspartate Amino Transf 105 U/L (15-37) 146 U/L (15-37) (AST/SGOT) Alanine Aminotransferase 187 U/L (12-78) 185 U/L (12-78) (ALT/SGPT) Total Creatine Kinase 1045 U/L 1315 U/L (39-308) (39-308) Creatine Kinase MB 5.1 NG/ML 5.8 NG/ML (0.5-3.6) (0.5-3.6) Lactic Acid Level 2.3 mmol/L (0.4-2.0) Chloride Level 112 MEQ/L 112 MEQ/L (98-107) (98-107) Calcium Level 7.8 MG/DL 8.0 MG/DL (8.5-10.1) (8.5-10.1) Magnesium Level 2.6 MG/DL (1.5-2.5) Random Glucose 59 MG/DL (74-106) Albumin 3.1 GM/DL (3.4-5.0) Test 11/18/16 11/18/16 11/19/16 04:07 18:00 07:52 Chloride Level 111 MEQ/L (98-107) Random Glucose 163 MG/DL (74-106) Calcium Level 7.6 MG/DL (8.5-10.1) Phosphorus Level 2.1 MG/DL 2.3 MG/DL (2.5-4.9) (2.5-4.9) Aspartate Amino Transf 165 U/L (15-37) (AST/SGOT) Alanine Aminotransferase 196 U/L (12-78) (ALT/SGPT) Total Creatine Kinase 1944 U/L 1287 U/L 929 U/L (39-308) (39-308) (39-308) Creatine Kinase MB 9.7 NG/ML (0.5-3.6) Total Protein 6.2 GM/DL (6.4-8.2) Albumin 2.8 GM/DL (3.4-5.0) PE at Discharge GENERAL: 41 year-old man, in 4 point restraints agitated earlier, less agitated SKIN: Warm and dry. HEAD: Normocephalic. No evidence of trauma. EYES: Pupils a little bit large, reactive. ENT: No nasal bleeding or discharge. Mucous membranes pink and moist. NECK: Trachea midline. No JVD. CARDIOVASCULAR: Regular rate and rhythm. No murmur appreciated. RESPIRATORY: No accessory muscle use. Clear to auscultation. Breath sounds equal bilaterally. GASTROINTESTINAL: Abdomen soft, non-tender, nondistended. Hepatic and splenic margins not palpable. MUSCULOSKELETAL: No obvious deformities. No edema. No obvious evidence of injury. NEUROLOGICAL: Awake and alert, less agitated. PSYCH: Patient doesn't want to talk much. Keeps his eyes closed most of the time , doesn't have eye contact. Hospital Course 41-year-old male known history of K2 use presents emergency department apparently intoxicated K2 or flakka. No signs of trauma. He required restraint and sedation. Polysubstance use Rhabdomyolysis Acute encephalopathy 2/2 substance use EtOH Withdrawal. On CIWA protocol CPK was noted trending up. Low phos replaced. Monitor Mag and phos and replace as need. Noted hypoglycemic, fluids changed to D5 IVF NS at 150 cc /hrs Monitor closely kidney function and trend CPK CBC unremarkable CMP remarkable for elevated anion gap, creatinine 1.9, elevated AST and ALT. Will monitor CMP closely. Monitor mag and phos. Total CK 1045, Monitor trend. Monitor closely kidney function Alcohol negative Consult psychiatry. Findings related to drug use. Improved. VSS. CPK trending down. Kidney function improved significantly and back to normal. Eating food, BS better controlled. Encouraged PO intake and hydration. Patient is stable medically for discharge. Discharge when cleared by psychiatry Spoke with Dr Gilliam from psych and cleared the patient for DC. Patient is cleared medically for DC . Patient is discharged in stable condition. To follow up as OP with PCP. Pt Condition on Discharge: Stable Discharge Disposition: Discharge Home Discharge Time: > 30 minutes Discharge Instructions DIET: Follow Instructions for: Heart Healthy Diet Activities you can perform: Regular-No Restrictions Activities to Avoid: Driving Follow up Referrals: PCP Follow-up - 3-5 Days Medication Profile: No Active Prescriptions or Reported Meds Shruthi Garcia MD Nov 19, 2016 14:40
[2016-11-19 16:00] VITALS: BP 131/64; PULSE 65; RESP 16; TEMP 97.7; O2SAT 98
[2016-11-19] MEDS: MULTIVITAMIN INJ 10 ML, FOLIC ACID INJ 1 MG in SODIUM CHLORID 0.9% 500 ML INJ 500 ML IV SCH (17:08)
--- NOTE | 2016-11-19 17:36 | HHI.PR ---
Subjective Remarks Patient in bed, appears in NAD, sleepy, doesn't want to talk with me much. He denies any pain. No n/v/d/c. Alert and oriented by ADRIANA lang and year. Admissions Advisor in the room. Patient denies n/v/d/c. Eating well. BS better controlled. Objective Vitals Vital Signs Date Time Temp Pulse Resp B/P Pulse Ox O2 Delivery O2 Flow Rate FiO2 11/19/16 16:00 97.7 65 16 131/64 98 11/19/16 12:00 97.2 76 16 124/76 98 11/19/16 08:00 96.2 69 16 123/74 98 11/19/16 04:00 98.7 65 20 101/58 96 11/19/16 00:40 Room Air 11/19/16 00:00 98.6 88 20 107/71 97 11/18/16 20:00 98.7 73 20 103/55 94 11/18/16 18:13 93 21 I/O 11/18/16 11/18/16 11/18/16 11/19/16 11/19/16 11/19/16 07:00 15:00 23:00 07:00 15:00 23:00 Intake Total 1019 ml 525 ml 735 ml 480 ml Output Total 1200 ml 1600 ml 1700 ml 950 ml 1350 ml Balance -181 ml -1075 ml -1700 ml -215 ml -870 ml Intake Oral 525 ml 480 ml IV Total 1019 ml 735 ml Output Urine Total 1200 ml 1600 ml 1700 ml 950 ml 1350 ml # Voids 2 # Bowel Movements 0 Result Diagram: 11/17/16 1335 11/18/16 0407 Objective Remarks GENERAL: 41 year-old man, in 4 point restraints agitated earlier, less agitated SKIN: Warm and dry. HEAD: Normocephalic. No evidence of trauma. EYES: Pupils a little bit large, reactive. ENT: No nasal bleeding or discharge. Mucous membranes pink and moist. NECK: Trachea midline. No JVD. CARDIOVASCULAR: Regular rate and rhythm. No murmur appreciated. RESPIRATORY: No accessory muscle use. Clear to auscultation. Breath sounds equal bilaterally. GASTROINTESTINAL: Abdomen soft, non-tender, nondistended. Hepatic and splenic margins not palpable. MUSCULOSKELETAL: No obvious deformities. No edema. No obvious evidence of injury. NEUROLOGICAL: Awake and alert, less agitated. PSYCH: Patient doesn't want to talk much. Keeps his eyes closed most of the time , doesn't have eye contact. A/P Assessment and Plan 41-year-old male known history of K2 use presents emergency department apparently intoxicated K2 or flakka. No signs of trauma. He required restraint and sedation. Polysubstance use Rhabdomyolysis Acute encephalopathy 2/2 substance use EtOH Withdrawal. On CIWA protocol CPK was noted trending up. Low phos replaced. Monitor Mag and phos and replace as need. Noted hypoglycemic, fluids changed to D5 IVF NS at 150 cc /hrs Monitor closely kidney function and trend CPK CBC unremarkable CMP remarkable for elevated anion gap, creatinine 1.9, elevated AST and ALT. Will monitor CMP closely. Monitor mag and phos. Total CK 1045, Monitor trend. Monitor closely kidney function Alcohol negative Will consult psychiatry DVT ppx SCD/TEDs Discussed Condition With Patient, ICU nurse Patient will be DC to halfway when cleared medically. Awaiting clearance from psych Shruthi Garcia MD Nov 19, 2016 17:36
[2016-11-19] MEDS ORDERED: THIAMINE INJ 100 MG in SODIUM CHLORIDE 0.9% INJ 100 ML IV SCH (23:00)
[2016-11-20] MEDS ORDERED: THIAMINE HCL 100 MG TAB PO SCH (09:00)
== END 2016-11-19 20:48 | DRG 896 ==
LOC: NEPE 13:07 → NEDA 17:00 → N03B 19:52 → N05A 11-18 13:27
PROVIDERS: ADMIT Hospitalist; ATTEND Hospitalist
DX: F15.159 Other stimulant abuse with stimulant-induced psychotic disorder, unspecified (principal); G93.40 Encephalopathy, unspecified; F10.239 Alcohol dependence with withdrawal, unspecified; M62.82 Rhabdomyolysis; F19.20 Other psychoactive substance dependence, uncomplicated; F29 Unspecified psychosis not due to a substance or known physiological condition; Z72.0 Tobacco use; E16.2 Hypoglycemia, unspecified
CPT/HCPCS: 80048; 80053; 80307; 82550; 82552; 82948; 83605; 83735; 84100; 85025; 96374; 96376; J1630; J2060; J3411; J7030; J7040; J7042